=== PATIENT | male | born 1995 | race Caucasian/White ===

== ENCOUNTER → 2018-03-12 | Outpatient (CLI) | payer OTHER ==
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
== END ==
LOC: US 14:02
PROVIDERS: ATTEND Emergency Medicine Sports Medicine
DX: M79.605 Pain in left leg (principal)